=== PATIENT | male | born 1980 | race Asian ===

== ENCOUNTER 2017-06-10 16:05 | Emergency (ER) | payer SELFPAY ==
[~2017-06-10] VITALS: Ht 165.1 cm; Wt 76.4 kg
[2017-06-10 18:29] VITALS: BP 118/59
== END 2017-06-10 18:54 | disposition home or self-care (01) ==
LOC: EMS 16:07
DX: S13.4XXA Sprain of ligaments of cervical spine, initial encounter (principal); R55 Syncope and collapse; V49.49XA Driver injured in collision with other motor vehicles in traffic accident, initial encounter; Y93.89 Activity, other specified; Y92.488 Other paved roadways as the place of occurrence of the external cause; Y99.8 Other external cause status
CPT/HCPCS: 70450; 72125; 99284